=== PATIENT | male | born 1945 | race Caucasian/White ===

== ENCOUNTER 2021-02-10 08:08 | Emergency (ER) | payer MEDICARE, MEDICAID ==
[~2021-02-10] VITALS: Ht 167.6 cm; Wt 84.0 kg
[2021-02-10] MEDS ORDERED: HYDROCODONE/ACETAMINOPHEN 5/325MG TABLET PO ONE (10:30)
[2021-02-10 10:42] VITALS: BP 120/72
[2021-02-10] MEDS ORDERED: TETANUS, DIPHTHERIA, PERTUSSIS VAC/PF 0.5ML (>7YR OLD) IM ONE (10:45)
[2021-02-10] MEDS ORDERED: LIDOCAINE HCL 1% 20ML VIAL (Pyxis) INJ INFIL ONE (11:45)
[2021-02-10] MEDS ORDERED: BACITRACIN ZINC OINT UDPKT TOP ONE (11:45)
[2021-02-10] MEDS ORDERED: ACET-2708 MT (14:21)
[2021-02-10] MEDS ORDERED: CEPH500C2 MT (14:21)
[2021-02-10] MEDS ORDERED: CEPHALEXIN 250MG CAPSULE PO ONE (14:30)
[2021-02-10] MEDS ORDERED: CEPHALEXIN 250MG CAPSULE PO NR (15:00)
== END 2021-02-10 15:25 | disposition home or self-care (01) ==
LOC: ER 08:08
DX: S91.114A Laceration without foreign body of right lesser toe(s) without damage to nail, initial encounter (principal); S92.231A Displaced fracture of intermediate cuneiform of right foot, initial encounter for closed fracture; M79.671 Pain in right foot; I10 Essential (primary) hypertension; V19.3XXA Pedal cyclist (driver) (passenger) injured in unspecified nontraffic accident, initial encounter; Y93.55 Activity, bike riding; Y92.9 Unspecified place or not applicable
CPT/HCPCS: 12002; 73610; 73630; 90471; 90715; 99284; J3490